=== PATIENT | male | born 1955 | race Caucasian/White ===

== ENCOUNTER 2017-11-08 05:29 | Day surgery (SDC) | payer BC, OTHER ==
[~2017-11-08] VITALS: Ht 177.8 cm; Wt 123.8 kg
[2017-11-08] VITALS (10 sets, daily range): BP systolic 124–161; BP diastolic 68–93
--- NOTE | ~2017-11-08 | O ---
[facility] [place] [address] OPERATIVE REPORT Name: JAM MORRIS Room #: DEP [facility]..#: [id number] Admission: 11/08/17 Attend Phys: Brennan Palencia MD Discharge: 11/09/17 Date of : 55 Report #: [id number] THIS REPORT FOR: //name// CC: Sachin Palencia DATE OF SERVICE: 11/08/2017 SURGEON: Brennan Palencia MD PREOPERATIVE DIAGNOSES: 1. Papillary carcinoma, right thyroid lobe. 2. Metastatic papillary carcinoma, right neck, level 6 and level 4 at least by fine needle aspiration. POSTOPERATIVE DIAGNOSES: 1. Papillary carcinoma, right thyroid lobe. 2. Metastatic papillary carcinoma, right neck, level 6 and level 4 at least by fine needle aspiration. OPERATIONS PERFORMED: 1. Total thyroidectomy for malignancy. 2. Right modified neck dissection. 3. Right level 6 neck dissection. 4. Right autotransplantation of superior parathyroid to sternocleidomastoid muscle. 5. Nerve integrity monitor x 5 hours. 6. Excision of right submandibular gland. INDICATIONS: The patient is a 62-year-old gentleman referred by his primary care physician, Dr. Bueno with a recently diagnosed metastatic papillary carcinoma of the thyroid. He had presented with an abnormal ultrasound showing a 1.2 cm nodule in the right lobe with internal blood flow and punctate calcification. Fine needle aspiration was positive for his papillary carcinoma. On ultrasound, he had also had multiple nodes in level 6 as well as nodes in the right lateral neck, especially superior towards the submandibular gland. Fine needle aspiration was done by the interventional radiologist showing positive findings in the thyroid as well as positive findings in the lateral neck and in light of the above, recommendations were made for surgery. DESCRIPTION OF PROCEDURE: The patient was brought to the operating room and placed supine on the operating table. After adequate general anesthesia was achieved via endotracheal intubation with a nerve integrity monitoring endotracheal tube, shoulder was placed and the neck was extended. He was prepped and draped for the procedure. The planned incision was marked out as a [facility] [address] [place] [address] OPERATIVE REPORT Name: JAM MORRIS Room #: DEP [facility] M.R.#: [id number] Admission: 11/08/17 Attend Phys: Brennan Palencia MD Discharge: 11/09/17 Date of : 55 Report #: [id number] hockey-stick incision extending on the anterior border of the sternocleidomastoid muscle and extending into the neck overlying the manubrium. This was injected with 1% Xylocaine with 1:100,000 epinephrine. As a separate part of the procedure, needle electrodes were placed in the orbicularis haresh and orbicularis oculi muscles with ground electrodes in the sternum and contralateral shoulder. The electrodes from the endotracheal tube and the facial nerve were connected to the facial nerve monitor. The patient was monitored for the entirety of the case for approximately 5 hours. Electrode resistance and impedance was measured and found to be acceptable. Threshold and stimulus intensity parameters were set and then he was monitored for the entire case. He was then prepped with Betadine and draped in a sterile fashion. The procedure began with an incision through the skin, subcutaneous tissue and platysma. Subplatysmal flaps were elevated superiorly and inferiorly elevating the entire neck skin. This was then held in place with silk sutures allowing access to the lateral neck and thyroid bed. Procedure began with a right modified neck dissection. Using a Bovie cautery, an incision was made on the anterior border of the sternocleidomastoid muscle and the tissue reflected anteriorly. Dissection then began anteriorly at level 1 and extended down to the left of midline down the anterior trachea to the manubrium. This fascia was then reflected posterior. Dissection then began along the submandibular gland. An incision was made inferiorly. The fascia was then reflected superiorly to protect the marginal mandibular branch of the facial nerve, which was identified by probe stimuli and protected. The facial vein was cut and reflected superiorly in a Craig-Greg maneuver also to protect the nerve. Dissection then continued anteriorly and all the soft tissue was reflected from level 1 and level 2 inferiorly. The gland was dissected out of its fossa. The gland was then reflected inferiorly and mylohyoid muscle was reflected anteriorly. The lingual nerve was identified in its usual anatomic position. The parasympathetic contribution was clamped between Ligaclips and divided. The whole gland was reflected inferiorly with level 2 contents as there was question of a submandibular lymph node. Dissection then began posteriorly. The jugular vein was identified. The soft tissue was then removed off the jugular vein beginning superior and moving inferior. The various components were identified, clamped between Ligaclips and divided. The hypoglossal nerve was identified under the digastric muscle. Soft tissue was reflected inferiorly and then dissection was made along the carotid artery. The vessels into the superior larynx were taken down sequentially, both artery and vein and reflected inferiorly with the specimen. The omohyoid muscle was then cut at its attachment on the larynx and reflected inferiorly. The whole carotid artery and jugular vein were then dissected down to their entrance into the upper mediastinum. All tissue level 1, level 2, level 3 and level 4 were taken with specimen. Level 5 was not disturbed as there was no indication for this on the [address] [address] OPERATIVE REPORT Name: JAM MORRIS Room #: DEP [facility].#: [id number] Admission: 11/08/17 Attend Phys: Brennan Palencia MD Discharge: 11/09/17 Date of : 55 Report #: [id number] Inferiorly at the level of the clavicle, dissection then continued from posterior to anterior until all of this muscle was then taken up to the medial carotid artery. At this point, attention was then turned to the thyroid. Total thyroidectomy was then undertaken beginning on the right side, beginning superiorly. The superior vessels were clamped between Ligaclips and divided. The inferior vessels were clamped between Ligaclips and divided. The middle thyroid vein was taken between Ligaclips. The isthmus was then elevated off the trachea to the left of midline and taken down with Harmonic rakel. The dissection then began in the tracheoesophageal groove. The recurrent nerve was found in its usual anatomic position confirmed with probe stimuli, tracked superiorly to the cricothyroid joint. Huitron's ligament was taken down sharply after finding the nerve with hemostasis with clip ligature and bipolar, taking care to avoid the nerve. The superior and inferior parathyroid were identified. The superior parathyroid was firmly attached to the capsule. Once this thyroid was removed, it was taken separately and confirmed with frozen section as a positive parathyroid. This was then autotransplanted in the right sternocleidomastoid muscle at the end of the procedure. Pocket was made and then once the parathyroid was minced and then placed into the pocket, this was closed with 3 for future reference. At this point, attention was then turned to the left thyroid. Again, on this side, superior vessels were taken down between Hemoclips. Middle thyroid vein was taken down between Hemoclips. The inferior vessels were sequentially identified, clamped between Hemoclips and divided. The gland was reflected superiorly under the trachea. Dissection in the tracheoesophageal groove revealed the nerve. This was tracked superiorly to the cricothyroid joint, confirmed with probe stimuli. The Huitron's ligament was taken down sharply and the left lobe delivered off field as specimen. Attention then began with palpation and dissection in level 6, first on the left side. There was no indication of any involvement of this on the CT and on palpation, no abnormal nodes were noted. The tissue was then taken just to the left of midline and reflected to the right. Dissection began at level 6. There were multiple positive grossly involved lymph nodes present that appeared with good capsule and no invasion. The recurrent nerve was then tracked from superior to inferior on the right side down to the upper mediastinum once it was positively dissected and protected. All the soft tissue in level 6 were removed. The parathyroids on the left had been found easily and protected. This completed dissection on the thyroid, hemostasis with bipolar cautery and clip ligature. The wound was then irrigated. Attention was then returned. The remaining neck dissection was then taken down off the carotid once the recurrent laryngeal nerve had been identified and all the soft tissue was then removed, delivered off the field in orientation for pathology. At this point, again, the neck was irrigated, hemostasis with bipolar cautery and clip ligature. Careful palpation revealed no further lymph node bearing tissue. At this point, bilateral [address] [facility] [address] [place] [address] OPERATIVE REPORT Name: JAM MORRIS Room #: DEP [facility] M.R.#: [id number] Admission: 11/08/17 Attend Phys: Brennan Palencia MD Discharge: 11/09/17 Date of : 55 Report #: [id number] drains were placed in separate stab incisions over the chest and right postauricular. These were curled into the wound and connected to bulb suction. The strap muscles were closed loosely in the midline with interrupted 3-0 Vicryl. A 3-0 Vicryl was used to close the platysma, 4-0 Vicryl deep dermal sutures and then michael on skin. This was then dressed with Mastisol and quarter inch Steri-Strips, followed by Op-Site. The drains were sutured in place with 2-0 silk. The patient was then returned to anesthesia, awakened without difficulty, returned to recovery in good condition. Sponge and needle counts were correct. There were no complications and the blood loss was about 75 mL. The patient will be watched overnight for monitoring. Presuming he does well, discharge to home with plan to follow up me in 48 hours for drain removal, 1 week for suture removal. Written and verbal discharge instructions and emergency precautions have been given to his . DISCHARGE MEDICATIONS: Include Synthroid 150 mcg 1 p.o. q. day, Tums 500 mg 2 tablets t.i.d., hydrocodone/acetaminophen 7.5/325 one to two q. 4-6 hours p.r.n., Phenergan suppository 25 mg 1 per rectum q. 4-6 hours p.r.n., Keflex 500 mg 1 q.i.d. for 10 days. He is instructed on light activity and a soft diet. <ELECTRONICALLY SIGNED> By: Brennan Palencia MD 11/14/17 1338 [id number] 1710 Brennan Palencia MD /nt
[~2017-11-08 05:29] MED LIST: CARDIZEM CD240 MG PO; CARDURA1 MG PO; CLARITIN10 MG PO; GABAPENTIN 100100 MG PO; IBUPROFEN 800800 M1 PO; LISINOPRIL10 MG PO; MELATONIN 10 M1 EACH PO; MOTION RELIEF25 MG PO; PRILOSEC OTC20 MG PO; TYLENOL EXTRA500 MG PO; XANAX 0.5 MG0.5 MG PO; ZOFRAN ODT4 MG PO
[2017-11-08] MEDS ORDERED: NORCO 7.5-3251 EACH PO (15:35)
[2017-11-08] MEDS ORDERED: PROMS25 WY RECTAL (15:35)
[2017-11-08] MEDS ORDERED: SYNTHROID175 MCG PO (15:36)
[2017-11-08] MEDS ORDERED: TUMS PO (15:36)
[2017-11-08] MEDS ORDERED: CALCITRIOL0.25 MCG PO (15:37)
[2017-11-08 16:11] LABS: ALBUMIN 3.5 g/dL (3.4-5.0); MAGNESIUM 1.5 mg/dL (1.8-2.4)
[2017-11-09] VITALS: BP 122/70
[2017-11-09 04:00] VITALS: BP 125/67
[2017-11-09 08:29] VITALS: BP 138/82
[2017-11-09 11:26] VITALS: BP 138/82
== END 2017-11-09 13:23 | disposition home or self-care (01) ==
LOC: OR 05:29 → TBA 05:29 → OR 10:58 → 4N 16:50 → OR 11-09 13:23
PROVIDERS: Otolaryngology Plastic Surgery within the Head & Neck
DX: C73 Malignant neoplasm of thyroid gland (principal); C79.89 Secondary malignant neoplasm of other specified sites; I10 Essential (primary) hypertension; K21.9 Gastro-esophageal reflux disease without esophagitis; Z98.890 Other specified postprocedural states; Z96.653 Presence of artificial knee joint, bilateral; Z98.41 Cataract extraction status, right eye; Z87.891 Personal history of nicotine dependence; Z98.42 Cataract extraction status, left eye; Z88.8 Allergy status to other drugs, medicaments and biological substances; Z79.899 Other long term (current) drug therapy; Z79.891 Long term (current) use of opiate analgesic
CPT/HCPCS: 10790; 50010; 50101; 50331; 50386; 50398; 50455; 51412; 52190; 52220; 52225; 52287; 56524; 56526; 56528; 56668; 56760; 57006; 62110; 62900; 70005

== ENCOUNTER → 2020-11-16 | Outpatient (CLI) | payer OTHER ==
[~2020-11-16] MED LIST changes: +CALCITRIOL0.25 MCG PO; +NORCO 7.5-3251 EACH PO; +PROMS25 WY RECTAL; +SYNTHROID175 MCG PO; +TUMS PO
== END ==
LOC: CAT 09:07
PROVIDERS: ATTEND Internal Medicine
DX: Z13.6 Encounter for screening for cardiovascular disorders (principal); I25.10 Atherosclerotic heart disease of native coronary artery without angina pectoris; E78.00 Pure hypercholesterolemia, unspecified

== ENCOUNTER → 2020-11-24 | Outpatient (CLI) | payer OTHER | LOC: SJCVCIMAG 08:28 | PROVIDERS: ATTEND Internal Medicine | DX: I10 Essential (primary) hypertension (principal); R06.00 Dyspnea, unspecified; G47.33 Obstructive sleep apnea (adult) (pediatric); Z85.850 Personal history of malignant neoplasm of thyroid ==

== ENCOUNTER → 2021-05-31 | Outpatient (CLI) | payer OTHER | LOC: SJCVC 13:56 | PROVIDERS: ATTEND Internal Medicine | DX: R94.31 Abnormal electrocardiogram [ECG] [EKG] (principal); I45.10 Unspecified right bundle-branch block; I10 Essential (primary) hypertension; G47.33 Obstructive sleep apnea (adult) (pediatric); E78.5 Hyperlipidemia, unspecified; C73 Malignant neoplasm of thyroid gland; M19.90 Unspecified osteoarthritis, unspecified site; Z85.828 Personal history of other malignant neoplasm of skin; Z87.891 Personal history of nicotine dependence; Z72.89 Other problems related to lifestyle; Z79.899 Other long term (current) drug therapy; Z88.8 Allergy status to other drugs, medicaments and biological substances ==